=== PATIENT | male | born 1955 | race Caucasian/White ===

== ENCOUNTER → 2017-06-20 | Outpatient (CLI) | payer BC ==
[~2017-06-20] MED LIST: NS 100 ML IV 100 ML IV ONE
--- NOTE | 2017-06-20 10:20 | CT ---
HISTORY: Syncope, dizziness Study: CT brain with and without contrast Comparison: None Technique: Multiple axial images of the brain were obtained from the skull base to the vertex with an with out administration of IV contrast. Findings: No acute intraparenchymal hemorrhage or mass can be identified. No extra-axial fluid collections ar e seen. No alteration in the attenuation of the brain parenchyma can be identified to suggest acute or subacute ischemic change. The ventricular system is symmetric and nondilated. no enhancing lesi ons are identified. No vascular abnormality or anomaly is identified. The extracranial structures ar e grossly unremarkable. IMPRESSION: No significant abnormality identified Reported By:
--- NOTE | 2017-06-20 10:26 | VAS ---
HISTORY: Syncope. Study: Carotid duplex Doppler ultrasound. Comparison: None available. Technique: Multiple miller scale and color flow Doppler images of the right and left carotid arterial system were obtained. The vertebral arterial system was evaluated as well. Findings: Normal color flow Doppler is seen throughout the right and left carotid arterial system. Minimal at heromatous plaque formation is noted in the carotid systems bilaterally. No hemodynamically signific ant stenosis is seen based on velocity criteria. The right vertebral artery is not visualized. The left vertebral artery shows normal antegrade flow. IMPRESSION: 1. No hemodynamically significant stenosis. The right vertebral artery is not visualized. Reported By:
== END ==
LOC: RAD 08:15
PROVIDERS: ATTEND Nurse Practitioner Family
DX: R55 Syncope and collapse (principal); R42 Dizziness and giddiness
CPT/HCPCS: 70470; 93880; A4222